=== PATIENT | female | born 1985 | race Caucasian/White ===

== ENCOUNTER 2021-10-14 14:45 | Emergency (ER) | payer OTHER, SELFPAY ==
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
[2021-10-14 14:52] VITALS: BP 136/86; PULSE 102; RESP 16; TEMP 36; O2SAT 100
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
== END 2021-10-14 15:35 | disposition home or self-care (01) ==
PROVIDERS: Emergency Provider Nurse Practitioner; PCP Physician Assistant
DX: M25.541 Pain in joints of right hand (principal)
CPT/HCPCS: 73140; 99203; G0463